=== PATIENT | female | born 1950 | race American Indian/Alaskan Native ===

== ENCOUNTER 2019-06-02 20:33 | Emergency (ER) | payer MEDICARE ==
[~2019-06-02 20:33] MED LIST: EPINEPHrine 1:10,000 1 MG/10 ML SYRINGE ONE
--- NOTE | 2019-06-02 21:13 | Emergency Department Report ---
ED CPR HPI - General Chief Complaint: Cardiac Arrest/CPR Stated Complaint: CARDIAC ARREST Time Seen by Provider: 06/02/19 21:09 Source: EMS Mode of arrival: Stretcher Limitations: Physical Limitation (patient distress), Other - History of Present Illness Initial Comments: EMS reports patient found down in a bathroom. Reports patient asystole on the monitor after multiple round of epi enroute. Reports total down time approximately 30 min. Hx HTN. Denies obvious trauma MD Complaint: found unresponsive ED Review of Systems ROS: Stated complaint: CARDIAC ARREST Other details as noted in HPI Comment: Unobtainable due to pts medical conditions (patient distress no pulse) ED Physical Exam - General Limitations: Other - Other Other exam information: GENERAL: Patient in acute distress HEAD: Normocephalic, atraumatic HEART: no pulse, asystole LUNGS: No spontaneous respirations ABDOMEN: abdomen soft, no tenderness MUSCULOSKELETAL: Normal joint range of motion, no redness, no swelling, no tenderness NEUROLOGIC: GCS 03 SKIN: Skin is warm and dry, no wounds, no rashes ED Medical Decision Making - Medical Decision Making Time of 2036. Prolonged downtime greater 30 min per EMS. Asystole on the monitor with EMS and in the ER. CPR continued in the ER. Resuscitation per ACLS guidelines. Critical care attestation.: If time is entered above; I have spent that time in minutes in the direct care of this critically ill patient, excluding procedure time. ED Disposition Clinical Impression: Cardiac arrest Disposition: DC-20 Is pt being admited?: No Condition: Stable
== END 2019-06-03 04:45 ==
LOC: ED 20:33
DX: I46.9 Cardiac arrest, cause unspecified (principal)
CPT/HCPCS: 92950; 99285; J0171